=== PATIENT | male | born 1990 | race Caucasian/White ===

== ENCOUNTER 2017-01-31 19:53 | Emergency (ER) | payer SELFPAY ==
[~2017-01-31] VITALS: Ht 185.4 cm; Wt 112.0 kg
[2017-01-31 19:59] VITALS: BP 132/78; PULSE 111; RESP 18; TEMP 99.8; O2SAT 94
[2017-01-31] MEDS ORDERED: LIDOCAINE 1%/EPINEPHrine 1:100,000 SOLN 20 ML VIAL ONE (20:06)
[2017-01-31] MEDS ORDERED: LIDOCAINE 1%/EPINEPHrine 1:100,000 SOLN 20 ML VIAL INFIL ONE (20:15)
[2017-01-31] MEDS ORDERED: TETANUS/DIPHTHERIA TOXOID ADULT 0.5 ML VIAL IM ONE (20:15)
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
[2017-01-31] MEDS ORDERED: CEPH-460 PO (21:47)
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
[2017-01-31 22:02] VITALS: BP 132/75; PULSE 94; RESP 18; O2SAT 97
== END 2017-01-31 22:32 | disposition home or self-care (01) ==
LOC: NEPD 19:53
DX: S01.81XA Laceration without foreign body of other part of head, initial encounter (principal); R51 Headache; M54.2 Cervicalgia; M54.5 Low back pain; F10.120 Alcohol abuse with intoxication, uncomplicated; Z23 Encounter for immunization; Z72.0 Tobacco use; W22.8XXA Striking against or struck by other objects, initial encounter
CPT/HCPCS: 12013; 70450; 70486; 72100; 72125; 90471; 90714